=== PATIENT | male | born 1955 | race Caucasian/White ===

== ENCOUNTER 2020-02-01 10:10 | Outpatient (CLI) | payer MEDICARE, SELFPAY ==
--- NOTE | ~2020-02-01 | XR_ITS ---
EXAMINATION: XR abdomen/kub 1V EXAM DATE: 02/01/2020 10:41 INDICATION: Left kidney stone. TECHNIQUE: Frontal projection of the upper abdomen, frontal projection lower abdomen/pelvis for inter pretation. Comparison is made to prior examination from 03/06/2017. FINDINGS: Persistent oblong 5 mm density projecting over the superior pole of the left kidney, could be nephrolithiasis. No other suspicious calcifications. Calcifications in the pelvis are believed to be phleboliths. These are unchanged. Moderate lower lumbar spondylosis. Laminectomies L3-L5. IMPRESSION: 1. Persistent calcification could be small left nephrolithiasis. Reviewed, dictated and finalized at location A. CENSOR
== END 2020-02-01 10:11 | disposition home or self-care (01) ==
LOC: ANHIMG 10:21
PROVIDERS: PCP Family Medicine; Visit Provider Urology
DX: N20.0 Calculus of kidney (principal); M47.816 Spondylosis without myelopathy or radiculopathy, lumbar region
CPT/HCPCS: 74018

== ENCOUNTER → 2021-04-07 08:57 | Outpatient (CLI) | payer MEDICARE, SELFPAY ==
--- NOTE | ~2021-04-07 | MR_ITS ---
EXAMINATION: MR lumbar spine wo con EXAM DATE: 04/07/2021 09:53 INDICATION: Lumbar radiculopathy right sided lbp x 3 months, no trauma, no ca. TECHNIQUE: Multi-sequential, multiplanar MR images of the lumbar spine were obtained without contrast . Sagittal T1, T2, T2 fat saturation images. Axial T2 weighted images. There is no prior study for comparison. FINDINGS: Moderate to severe disc disease L4-5 and L5-S1, moderate at L2-3 and L3-4. There is 2 mm re trolisthesis L4 on L5 and L5 on S1. The conus medullaris terminates at the T12-L1 level and has elio l signal intensity and morphology. Paraspinal soft tissue is unremarkable. Level by level evaluation: T12-L1: Disc does not extend beyond the endplate margin. Facet arthropathy: Mild. Neural foraminal stenosis: No stenosis. Central canal stenosis: No stenosis. L1-L2: There is a minimal diffuse disc bulge. Facet arthropathy: Mild. Neural foraminal stenosis: No stenosis. Central canal stenosis: No stenosis. L2-L3: There is a moderate diffuse disc bulge. Facet arthropathy: Moderate. Neural foraminal stenosis: Moderate left, mild to moderate right. Central canal stenosis: Mild. L3-L4: There is a large diffuse disc bulge. Facet arthropathy: Moderate to severe. Neural foraminal stenosis: Severe right, moderate left. Central canal stenosis: Moderate (posterior decompression from laminectomies). L4-L5: There is a large diffuse disc bulge. Facet arthropathy: Moderate to severe. Neural foraminal stenosis: Severe left, moderate to severe right. Central canal stenosis: Mild to moderate, laminectomies. L5-S1: There is a large diffuse disc bulge. Facet arthropathy: Moderate to severe. Neural foraminal stenosis: Moderate to severe bilateral. Central canal stenosis: Mild to moderate, laminectomies. IMPRESSION: 1. Significant multilevel neural foraminal stenosis, most narrowed on the right at L3-4 and on the l eft at L4-5. Reviewed, dictated and finalized at location A. [facility]ING ASSOCIATE IMPRESSION: 1. Significant multilevel neural foraminal stenosis, most narrowed on the righ t at L3-4 and on the left at L4-5.
== END ==
PROVIDERS: Visit Provider Nurse Practitioner Adult Health
DX: M54.16 Radiculopathy, lumbar region (principal); M48.061 Spinal stenosis, lumbar region without neurogenic claudication
CPT/HCPCS: 72148

== ENCOUNTER 2023-06-18 09:40 | Day surgery (SDC) | payer MEDICARE, SELFPAY ==
[2023-06-02 11:03] VITALS: BMI 32.1
[2023-06-05 09:16] VITALS: BMI 30.4
[2023-06-18 10:30] VITALS: BP 121/93; PULSE 78; RESP 18; TEMP 36; O2SAT 99; BMI 31.1
[2023-06-18] MEDS: LACTATED RINGERS 1,000 ML 150 ML IV CONT (10:43)
--- NOTE | 2023-06-18 10:57 | PM.HPGS ---
History of Present Illness History of Present Illness Consent: Risks, benefits, and alternatives have been discussed and questions answered. Patient agrees to proceed with procedure. Chief complaint: Neoplasm Screening Narrative: Lazaro Melton is a 67 year old male presents for screening colonoscopy. Patient's current weight appetite and bowel movements are normal. Patient denies abdominal pain. He has had no bleeding. Family history is significant that his mother had colon cancer. Review of Systems Review of Systems: Review of systems is noncontributory. [facility] Past Medical History Medical History (Updated 06/18/23 @ 10:58 by Eliceo Luz MD) Appendicitis History of back injury History of goiter Macula lutea degeneration Screening for colon cancer Surgical History Surgical History History of colonoscopy History of lithotripsy History of parathyroidectomy Family History Family History Father Carcinoma of colon Family history of lung cancer Mother Family history of malignant neoplasm Social History Social History Smoking packs per day: 1 Smoking cigarettes per day: 20.0 Years smoked: 50 Smoking pack-years: 50.00 Smoking status: Heavy tobacco smoker Tobacco type: cigarettes (1 pack per day ) Second hand tobacco smoke exposure: No Alcohol intake: current Drinks per week: 15 Substance use: never Substance use type: does not use Living arrangements: alone Occupation/Education: occupation Gender identity (if verbalized by the patient): Male Spiritual care concerns: No Meds Home Medications and Allergies Home Medications Medication Instructions Recorded Confirmed Type sildenafil 100 mg tablet 100 mg PO DAILY PRN sexual 10/11/19 06/18/23 Rx activity #7 tabs vit C 250 mg-vit E 90 mg-zinc 40 1 tablet PO BID 10/11/19 06/18/23 History mg-copper 1 [id number] capsule (PreserVision AREDS-2) celecoxib 200 mg capsule 200 mg PO DAILY PRN pain #90 caps 10/24/22 06/18/23 Rx Allergies Allergy/AdvReac Type Severity Reaction Status Date / Time No Known Allergies Allergy Verified 06/18/23 10:24 Vital Signs Vital Signs - 24 hr 06/18/23 10:30 Temperature 96.8 F L Pulse Rate 78 Respiratory Rate 18 Blood Pressure 121/93 H Pulse Oximetry 99 Oxygen Delivery Room Air Exam Narrative: Physical exam reveals patient to be alert. Vital signs stable. HEENT exam is unremarkable. Patient is anicteric. Lungs are clear to auscultation and to percussion. Heart is without murmur or extra sounds. Abdomen sounds are present soft nontender with no organomegaly. Digital external rectal exam is normal. Assessment and Plan Assessment and plan (1) Family history of colon cancer in mother: Code(s): Z80.0 - Family history of malignant neoplasm of digestive organs Status: Acute Assessment and Plan: Patient's mother had colon cancer. Plan for surveillance colonoscopy now and consider this a 5 year intervals.
--- NOTE | 2023-06-18 11:01 | P.PNAN_ITS ---
Anes - Initial Pre Proc Eval Procedure: Operation Date: 06/18/23 11:30 Proposed Procedures p Screening Colonoscopy - Eliceo Luz MD Date/Time: 06/18/23 11:01 Surgeon: Eliceo Luz MD Pre Op Diagnosis: Neoplasm Screening Patient Data Age: 67 Gender: M Height: 1.73 m Weight: 92.8 kg Last Vital Signs Temp 36.0 C L 06/18/23 10:30 Pulse 78 06/18/23 10:30 Resp 18 06/18/23 10:30 BP 121/93 H 06/18/23 10:30 Pulse Ox 99 06/18/23 10:30 O2 Del Method Room Air 06/18/23 10:30 Allergies Allergy/AdvReac Type Severity Reaction Status Date / Time No Known Allergies Allergy Verified 06/18/23 10:24 Home Medications Medication Instructions Recorded Confirmed Type sildenafil 100 mg tablet 100 mg PO DAILY PRN sexual 10/11/19 06/18/23 Rx activity #7 tabs vit C 250 mg-vit E 90 mg-zinc 40 1 tablet PO BID 10/11/19 06/18/23 History mg-copper 1 [id number] capsule (PreserVision AREDS-2) celecoxib 200 mg capsule 200 mg PO DAILY PRN pain #90 caps 10/24/22 06/18/23 Rx Patient hx anesthesia problems: none Family hx anesthesia problems: none Results Review: All pre-operative results and documents have been reviewed as part of the pre- operative evaluation. [facility] Past Medical History Medical History Appendicitis History of back injury History of goiter Macula lutea degeneration Screening for colon cancer Surgical History Surgical History History of colonoscopy History of lithotripsy History of parathyroidectomy Family History Family History Father Carcinoma of colon Family history of lung cancer Mother Family history of malignant neoplasm Social History Social History Smoking packs per day: 1 Smoking cigarettes per day: 20.0 Years smoked: 50 Smoking pack-years: 50.00 Smoking status: Heavy tobacco smoker Tobacco type: cigarettes (1 pack per day ) Second hand tobacco smoke exposure: No Alcohol intake: current Drinks per week: 15 Substance use: never Substance use type: does not use Living arrangements: alone Occupation/Education: occupation Gender identity (if verbalized by the patient): Male Spiritual care concerns: No Anes - Eval Final PreProcedure Day of Procedure 06/18/23 11:01 Patient weight: obese Heart: regular rate and rhythm Lungs: decreased breath sounds Airway: Mallampati scale class II Neurological: alert and oriented Last oral intake: >/= 8 hours ASA classification: III Emergent: no Anesthetic plan: proceed Anesthesia type and monitoring: general GIVS and standard monitoring Results Review: All pre-operative results and documents have been reviewed as part of the pre- operative evaluation. Informed Consent: The patient's anesthetic plan and its attendant risks and benefits were discussed with the patient/family/POA. Questions were solicited and answers provided to the satisfaction of the patient/family/POA.
[2023-06-18 11:50] VITALS: BP 108/80; PULSE 67; RESP 15; O2SAT 99
[2023-06-18 12:00] VITALS: BP 106/84; PULSE 74; RESP 15; O2SAT 98
[2023-06-18 12:10] VITALS: BP 133/95; PULSE 65; RESP 16; O2SAT 99
--- NOTE | 2023-06-18 12:36 | WPDANESPN ---
Anes - Prog Note Post-Op Date/Time: 06/18/23 12:36 Cardiovascular status: normal Respiratory status: normal Airway patency: baseline Mental status: baseline Post-Op hydration status: normal Vital Signs: Last Vital Signs Temp 36.0 C L 06/18/23 10:30 Pulse 65 06/18/23 12:10 Resp 16 06/18/23 12:10 BP 133/95 H 06/18/23 12:10 Pulse Ox 99 06/18/23 12:10 O2 Del Method Room Air 06/18/23 12:10 Pain Score (VAS): 0 I/O: Intake & Output 06/17/23 06/18/23 06/18/23 23:59 07:59 15:59 Intake Total 500 Balance 500 Patient Feedback: Patient satisfied with anesthetic care.
== END 2023-06-18 12:26 | disposition home or self-care (01) ==
PROVIDERS: PCP Family Medicine; Visit Provider Internal Medicine Gastroenterology
PROC: 0DJD8ZZ Inspection of Lower Intestinal Tract, Via Natural or Artificial Opening Endoscopic (ICD-10-PCS; CPT 45378; principal; 2023-06-18 11:30)
DX: Z80.0 Family history of malignant neoplasm of digestive organs (principal); K57.30 Diverticulosis of large intestine without perforation or abscess without bleeding; K64.8 Other hemorrhoids
CPT/HCPCS: G0105

== ENCOUNTER 2023-08-31 12:45 | Emergency (ER) | payer MEDICARE, SELFPAY ==
--- NOTE | ~2023-08-31 | XR_ITS ---
EXAMINATION: XR chest 2V DATE: 08/31/2023 13:10 INDICATION: Cough TECHNIQUE: PA and lateral views of the chest were obtained. COMPARISON: Chest radiograph dated 06/01/2009 FINDINGS: Bronchial wall thickening and mild groundglass and reticular opacities at the medial/infrahilar aspec t of the bilateral lower lungs, right greater than left. No pleural effusion or pneumothorax. The car diomediastinal silhouette is normal. Moderate thoracic spondylosis with a few chronic compression fra ctures in the mid thoracic spine.. IMPRESSION: 1. Bronchial wall thickening and mild opacities at the bilateral infrahilar regions which could repre sent pneumonia or mild pulmonary edema. Reviewed, dictated and finalized at location A. IMPRESSION: 1. Bronchial wall thickening and mild opacities at the bilateral infrahilar reg ions which could represent pneumonia or mild pulmonary edema.
--- NOTE | 2023-08-31 12:53 | ED.URI ---
HPI - URI/Sore Throat General Chief Complaint: Upper Respiratory Infection Stated Complaint: cold,shortness of breath,cough Source: patient and RN notes reviewed Mode of arrival: ambulatory Limitations: no limitations History of Present Illness HPI Narrative: 68 y/o male presented for c/o cough and chest congestion and nasal congestion. Onset about 10 days. States he feels like he cannot get a full breath, rib pain with coughing, cough is productive of yellow sputum, and cough is worse at night. Taking Mucinex and completed a course of steroid taper he purchased while in [place], without improvement. Smokes 1ppd. MD elicited complaint: cough Related Data Home Medications Medication Instructions Recorded Confirmed vit C 250 mg-vit E 90 mg-zinc 40 1 tablet PO BID 10/11/19 08/31/23 mg-copper 1 [id number] capsule (PreserVision AREDS-2) meloxicam 15 mg tablet 15 mg PO DAILY 08/31/23 08/31/23 Allergies Allergy/AdvReac Type Severity Reaction Status Date / Time No Known Allergies Allergy Verified 08/31/23 12:58 Review of Systems Review of Systems: CONSTITUTIONAL: Endorses malaise, denies chills, sweats, fever EYES: Denies visual changes, redness, or discharge ENT: Reports rhinorrhea, congestion, sinus pain, denies otalgia, sore throat CARDIOVASCULAR: Denies chest pain, palpitations, edema RESPIRATORY: Reports cough, dyspnea GASTROINTESTINAL: Denies abdominal pain, nausea, vomiting, diarrhea SKIN: Denies rash or itching MUSCULOSKELETAL: Endorses myalgia PMFSH Past Medical History Medical History Appendicitis History of back injury History of goiter Macula lutea degeneration Screening for colon cancer Surgical History Surgical History History of colonoscopy History of lithotripsy History of parathyroidectomy Family History Family History Father Carcinoma of colon Family history of lung cancer Mother Family history of malignant neoplasm Social History Social History Smoking packs per day: 1 Smoking cigarettes per day: 20.0 Years smoked: 50 Smoking pack-years: 50.00 Smoking status: Heavy tobacco smoker Tobacco type: cigarettes (1 pack per day ) Second hand tobacco smoke exposure: No Alcohol intake: current Drinks per week: 15 Substance use: never Substance use type: does not use Living arrangements: alone Occupation/Education: occupation Gender identity (if verbalized by the patient): Male Spiritual care concerns: No Exam Narrative: GENERAL: well-appearing, nontoxic no acute distress. EYES: PERRLA, conjunctivae clear ENT: Mucous membranes moist. TMs pearly khan with dull light reflex bilaterally; no tragal tenderness. Oropharynx not erythematous without lesions or exudate, no drooling, no hoarseness, no trismus, uvula midline. No tripod positioning, muffled voice, soft palate or pharyngeal wall bulging NECK: Supple. No lymphadenopathy CHEST: Lungs coarse throughout, frequent moist cough. No respiratory distress, speaks in full sentences. HEART: Regular rate and rhythm. No murmur heard. SKIN: Warm, dry NEURO: Alert and oriented x3. Course Course Emergency Course: Patient is aware of diagnosis, understands and agrees to treatment plan. Anticipatory guidance given. Patient agrees to follow-up as directed and is aware of reasons to seek care at the emergency department. Portions of this record may have been created with voice recognition software Level of Care: Express Care Visit Vital Signs Vital signs: Vital Signs Temperature 98 F 08/31/23 12:57 Pulse Rate 90 08/31/23 12:57 Respiratory Rate 16 08/31/23 12:57 Blood Pressure 123/88 08/31/23 12:57 Pulse Oximetry 98 08/31/23 12:57 Temperature 98 F
[2023-08-31 12:57] VITALS: BP 123/88; PULSE 90; RESP 16; TEMP 36.6; O2SAT 98
== END 2023-08-31 13:36 | disposition home or self-care (01) ==
PROVIDERS: Emergency Provider Nurse Practitioner Family; PCP Family Medicine
DX: J22 Unspecified acute lower respiratory infection (principal); F17.210 Nicotine dependence, cigarettes, uncomplicated
CPT/HCPCS: 71046; 99213; G0463

== ENCOUNTER 2024-01-07 09:35 | Emergency (ER) | payer MEDICARE, SELFPAY ==
[2024-01-07 09:45] VITALS: BP 113/78; PULSE 95; RESP 18; TEMP 36.1; O2SAT 99
--- NOTE | 2024-01-07 09:53 | ED.URI ---
HPI - URI/Sore Throat General Chief Complaint: Upper Respiratory Infection Stated Complaint: cough Time Seen by Provider: 01/07/24 09:59 Source: patient and RN notes reviewed Mode of arrival: ambulatory Limitations: no limitations History of Present Illness HPI Narrative: 68-year-old male presents with concern for 10 day history of cough, sinus congestion, chest congestion. Reports symptoms started off in the sinuses and have ?moved to his chest?. Reports history of pneumonia. He is a cigarette smoker. Reports he has been cutting back the last 10 days since he has been feeling sick. He reports feeling himself wheeze. He reports exertional shortness of breath. He denies fever. Patient has an inhaler at home from a previous illness he has not used yet. MD elicited complaint: cough and nasal congestion Related Data Home Medications Medication Instructions Recorded Confirmed vit C 250 mg-vit E 90 mg-zinc 40 1 tablet PO BID 10/11/19 01/07/24 mg-copper 1 [id number] capsule (PreserVision AREDS-2) meloxicam 15 mg tablet 15 mg PO DAILY 08/31/23 01/07/24 Allergies Allergy/AdvReac Type Severity Reaction Status Date / Time No Known Allergies Allergy Verified 01/07/24 09:46 Review of Systems Review of Systems: CONSTITUTIONAL: Denies malaise, chills, sweats, or fever. EYES: Denies visual changes, redness, or discharge. ENT: Reports rhinorrhea, congestion. Denies sinus pain, otalgia and sore throat. CARDIOVASCULAR: Denies chest pain, palpitations, or edema. RESPIRATORY: Reports cough, chest congestion, wheezing, exertional dyspnea. GASTROINTESTINAL: Denies abdominal pain, nausea, vomiting, diarrhea SKIN: Denies rash or itching. MUSCULOSKELETAL: Denies myalgia. NEUROLOGIC: Denies headache. All systems reviewed & are unremarkable except as noted in HPI and below PMFSH Past Medical History Medical History Appendicitis History of back injury History of goiter Macula lutea degeneration Screening for colon cancer Surgical History Surgical History History of colonoscopy History of lithotripsy History of parathyroidectomy Family History Family History Father Carcinoma of colon Family history of lung cancer Mother Family history of malignant neoplasm Social History Social History Smoking packs per day: 1 Smoking cigarettes per day: 20.0 Years smoked: 50 Smoking pack-years: 50.00 Smoking status: Heavy tobacco smoker Tobacco type: cigarettes (1 pack per day ) Second hand tobacco smoke exposure: No Alcohol intake: current Drinks per week: 15 Substance use: never Substance use type: does not use Living arrangements: alone Occupation/Education: occupation Gender identity (if verbalized by the patient): Male Spiritual care concerns: No Comments At time of signature, agree with nursing past medical, surgical, social and family history. There is no relevant family history pertinent to the presenting complaint Exam Narrative: GENERAL: Well-appearing, well-nourished, and in no acute distress. HEAD: Normocephalic EYES: PERRLA, conjunctivae clear ENT: Nares clear. Mucous membranes moist. TM pearly khan with dull light reflex bilaterally; no tragal tenderness. Oropharynx not erythematous without lesions. Tonsils not enlarged and without exudate, no drooling, no hoarseness, no trismus, uvula midline. NECK: Supple. No lymphadenopathy CHEST: Scattered rhonchi, expiratory wheeze throughout, breath sounds equal. No rales, or stridor. No respiratory distress, speaks in full sentences. HEART: Regular rate and rhythm. No murmur heard. SKIN: Warm, dry, no rash. NEURO: Alert and oriented x3. PSYCH: Normal mood and affect Course Course Emergency Course: Patient
== END 2024-01-07 10:08 | disposition home or self-care (01) ==
PROVIDERS: Emergency Provider Nurse Practitioner; PCP Family Medicine
DX: J22 Unspecified acute lower respiratory infection (principal); F17.210 Nicotine dependence, cigarettes, uncomplicated; Z79.1 Long term (current) use of non-steroidal anti-inflammatories (NSAID)
CPT/HCPCS: 99213; G0463